=== PATIENT | female | born 1980 ===

== ENCOUNTER 2017-10-02 18:05 | Emergency (ER) | payer OTHER ==
[~2017-10-02] VITALS: Ht 166 cm; Wt 83.5 kg
[2017-10-02 18:37] VITALS: BP 162/86; TEMP 98.1
[2017-10-02] MEDS ORDERED: GENTAMICIN EYE D5 ML OU (19:05)
[2017-10-02 19:15] VITALS: PULSE 92
== END 2017-10-02 19:15 | disposition home or self-care (01) ==
LOC: COL.ER 18:05
DX: H57.8 Other specified disorders of eye and adnexa (principal)

== ENCOUNTER → 2017-11-10 | Outpatient (CLI) | payer OTHER ==
[~2017-11-10] MED LIST: GENTAMICIN EYE D5 ML OU
[2017-11-10 16:15] LABS: BASO # 0.1 (0.0-0.2); BASO % 0.6 % (0.0-2.0); EOS # 0.2 (0.0-0.7); EOS % 1.9 % (0-4.0); GRAN % 57.2 % (42.2-75.2); HEMATOCRIT 40.7 % (37.0-47.0); HEMOGLOBIN 12.5 g/dl (12.5-16.0); LYMPH # 3.6 (1.2-3.4); LYMPH % 34.7 % (20.0-51.0); MEAN CELL VOLUME 80 fl (80.0-100.0); MEAN CORPUSCULAR HEMOGLOBIN 25 pg (27.0-31.0); MEAN CORPUSCULAR HGB CONC 31 g/dl (33.0-37.0); MEAN PLATELET VOLUME 8.8 fl (7.4-10.4); MONO # 0.5 (0.1-0.6); MONO % 5.2 % (1.7-9.3); PLATELET COUNT 386 K/mm3 (130-400); RED BLOOD COUNT 5.08 M/mm3 (4.10-5.30); REDCELL DISTRIBUTION WIDTH-CV 14.6 % (11.5-14.5)
[2017-11-10 16:39] LABS: ALBUMIN 4.2 gm/dL (3.5-5.0); BILIRUBIN,TOTAL 0.2 mg/dL (0.0-1.0); CALCIUM 9.1 mg/dL (8.4-10.2); CREATININE, serum 0.7 mg/dL (0.52-1.25); POTASSIUM 3.8 mmol/L (3.4-5.0); TOTAL PROTEIN 8.4 gm/dL (6.4-8.2)
[2017-11-10 17:10] LABS: TSH w REFLEX 2.12 uIU/mL (0.465-4.680)
== END ==
LOC: COL.LAB 15:27
PROVIDERS: Family Medicine
DX: Z13.1 Encounter for screening for diabetes mellitus (principal); Z13.220 Encounter for screening for lipoid disorders

== ENCOUNTER → 2018-03-25 | Outpatient (CLI) | payer OTHER ==
[2018-03-25 16:06] LABS: BASO # 0.1 (0.0-0.2); BASO % 0.8 % (0.0-2.0); EOS # 0.2 (0.0-0.7); EOS % 3.1 % (0-4.0); GRAN # 4.2 (1.4-6.5); GRAN % 56.3 % (42.2-75.2); HEMATOCRIT 42.2 % (37.0-47.0); LYMPH # 2.6 (1.2-3.4); LYMPH % 34.7 % (20.0-51.0); MEAN CELL VOLUME 82 fl (80.0-100.0); MEAN CORPUSCULAR HEMOGLOBIN 25 pg (27.0-31.0); MEAN CORPUSCULAR HGB CONC 31 g/dl (33.0-37.0); MEAN PLATELET VOLUME 8.7 fl (7.4-10.4); MONO # 0.4 (0.1-0.6); PLATELET COUNT 343 K/mm3 (130-400); RED BLOOD COUNT 5.18 M/mm3 (4.10-5.30); REDCELL DISTRIBUTION WIDTH-CV 14.6 % (11.5-14.5)
== END ==
LOC: COL.LAB 10:45
PROVIDERS: Family Medicine
DX: R59.1 Generalized enlarged lymph nodes (principal)